=== PATIENT | male | born 1955 | race Asian ===

== ENCOUNTER 2021-02-15 05:27 | Day surgery (SDC) | payer MEDICARE, OTHER ==
[2021-02-13 10:04] LABS: ALBUMIN 3.3 g/dL (3.4-5.0); ANION GAP 6 mmol/L (5-15); CALCIUM 10.1 mg/dL (8.5-10.1); CHLORIDE 95 mmol/L (98-107); INTERNATIONAL NORMALIZED RATIO 1.03 (0.93-1.1)
[2021-02-13 10:07] LABS: % IRON SATURATION 43 % (20-55); ALANINE AMINOTRANSFERASE 14 U/L (12-78); ALKALINE PHOSPHATASE 123 U/L (45-117); BILIRUBIN,TOTAL 0.6 mg/dL (0.2-1.0); CREATININE 9.61 mg/dL (0.7-1.3); IRON LEVEL 90 mcg/dL (65-175); TOTAL IRON BINDING CAPACITY 210 mcg/dL (250-450); TOTAL PROTEIN 8.2 g/dL (6.4-8.2); TRANSFERRIN 186 mg/dL (200-360)
[2021-02-13 10:21] LABS: BASOPHILS % (AUTO) 1 % (0-1); EOSINOPHILS % (AUTO) 3 % (1-7); LYMPHOCYTES % (AUTO) 21 % (22-44); MEAN CORPUSCULAR HEMOGLOBIN 31.8 pg (27.5-34.5); MEAN CORPUSCULAR HGB CONC 33.4 g/dL (33.2-36.2); MONOCYTES % (AUTO) 14 % (2-9); NEUTROPHILS % (AUTO) 61 % (42-75); PLATELET COUNT 197 x10^3/uL (130-400); RED BLOOD COUNT 3.64 x10^6/uL (4.38-5.82); RED CELL DISTRIBUTION WIDTH 14.7 % (9.4-14.8)
[~2021-02-15] VITALS: Ht 167.6 cm; Wt 85.8 kg
[~2021-02-15 05:27] MED LIST: ASPI81TA45 PO; CARV12.52 PO; CHOL10003 PO; CINA60TA PO; CLOB15OI TP; DIALYSIS HE; HUM100IN4 SC; LEVO125T5 PO; LISI40TA9 PO; SEVE800T8 PO; SIMV40TA20 PO; VITA1CAP PO
[2021-02-15] MEDS ORDERED: CHLORHEXIDINE 15 ML UDC ONE (06:21)
[2021-02-15] MEDS ORDERED: CHLORHEXIDINE 15 ML UDC PO ONE (06:30)
[2021-02-15] MEDS ORDERED: SODIUM CHLORIDE 0.9% 1,000 ML IV SCH (06:30)
[2021-02-15 06:38] VITALS: BP 111/73
[2021-02-15 07:07] LABS: ANION GAP 12 mmol/L (5-15); CALCIUM 9.8 mg/dL (8.5-10.1); CHLORIDE 92 mmol/L (98-107)
[2021-02-15 07:09] LABS: CREATININE 8.08 mg/dL (0.7-1.3)
[2021-02-15] MEDS ORDERED: LIDOCAINE-MPF 2% ,5ML ONE (07:14)
[2021-02-15] MEDS ORDERED: PROPOFOL 10 MG/ML, 20ML ONE ×3 (07:14→08:20)
[2021-02-15] MEDS ORDERED: PHENYLEPHRINE 10 MG/ML ONE (07:44)
== END 2021-02-15 09:40 | disposition home or self-care (01) ==
LOC: OUT 05:27
PROVIDERS: ATTEND Internal Medicine Gastroenterology
DX: R19.4 Change in bowel habit (principal); C7A.8 Other malignant neuroendocrine tumors; K31.7 Polyp of stomach and duodenum; K64.1 Second degree hemorrhoids; K62.89 Other specified diseases of anus and rectum; K31.89 Other diseases of stomach and duodenum; E11.22 Type 2 diabetes mellitus with diabetic chronic kidney disease; I12.0 Hypertensive chronic kidney disease with stage 5 chronic kidney disease or end stage renal disease; N18.6 End stage renal disease; I25.10 Atherosclerotic heart disease of native coronary artery without angina pectoris; Z79.01 Long term (current) use of anticoagulants; Z79.4 Long term (current) use of insulin; Z79.82 Long term (current) use of aspirin; Z79.899 Other long term (current) drug therapy; Z88.2 Allergy status to sulfonamides; Z99.2 Dependence on renal dialysis
CPT/HCPCS: 36415; 43236; 43239; 43251; 45380; 80048; 80053; 82728; 82962; 83540; 84466; 85025; 85610; 85730; 88305; 88341; 88342; 88360; 93005; J2370; J2704; J7030; 83550